=== PATIENT | female | born 1995 | race Asian ===

== ENCOUNTER 2020-07-04 23:49 | Emergency (ER) | payer OTHER ==
[~2020-07-04] VITALS: Ht 162.6 cm; Wt 91.6 kg
[2020-07-05 00:01] VITALS: Ht 162.6 cm; Wt 91.6 kg
[2020-07-05 01:52] LABS: BASOPHIL % 0.6 % (0.2-1.3)
[2020-07-05 01:59] LABS: RED CELL DISTRIBUTION WIDTH 14.6 % (12.3-17.7)
[2020-07-05 02:00] LABS: PLATELET COUNT 409 x10^3mcL (179-408)
[2020-07-05 02:28] LABS: CALCIUM 9.4 mg/dL (8.5-10.1); CARBON DIOXIDE 17.8 mmol/L (21-32); CHLORIDE SERUM 104 mmol/L (98-107); CREATININE SERUM 0.8 mg/dL (0.6-1.0); GFR1 > 60 mL/min; GLUCOSE SERUM 91 mg/dL (74-106); POTASSIUM SERUM 3.6 mmol/L (3.5-5.1); SODIUM SERUM 138 mmol/L (136-145)
[2020-07-05 02:33] LABS: ALBUMIN 4.3 g/dL (3.4-5.0); ALKALINE PHOSPHATASE 116 U/L (46-116); ALT/SGPT 37 U/L (14-59); AST/SGOT 18 U/L (15-37); BILIRUBIN TOTAL 0.8 mg/dL (0.20-1.00); LIPASE 115 IU/L (73-393); TOTAL PROTEIN, SERUM 8.3 g/dL (6.4-8.2)
[2020-07-05 03:04] VITALS: BP 121/76
[2020-07-05] MEDS ORDERED: CIPRO500 MG PO (03:04)
[2020-07-05] MEDS ORDERED: IBU600 M2 PO (03:04)
== END 2020-07-05 03:19 | disposition home or self-care (01) ==
LOC: ED 23:49
PROVIDERS: Emergency Medicine
DX: K52.9 Noninfective gastroenteritis and colitis, unspecified (principal)
CPT/HCPCS: J7030